=== PATIENT | female | born 1925 | race Caucasian/White ===

== ENCOUNTER 2017-04-16 16:43 | Inpatient (IN) | payer MEDICARE ==
[~2017-04-16] VITALS: Ht 162.6 cm; Wt 53.5 kg
[2017-04-16 17:20] VITALS: BP 168/82
--- NOTE | 2017-04-16 17:30 | NUR ---
Admitted to Acute rehab from [facility] via rney accompanied by med response. BP 168/82. VT-90. Informed Dr. Coello. No new orders at this time. Oriented to unit and call light. Routine admission care done.
[2017-04-16] MEDS ORDERED: ACET-2154 PO (17:33)
[2017-04-16] MEDS ORDERED: ASCO500T10 PO (17:34)
[2017-04-16] MEDS ORDERED: CALC500T3 PO (17:38)
[2017-04-16] MEDS ORDERED: CHOL10005 PO (17:39)
[2017-04-16] MEDS ORDERED: CYAN10009 PO (17:41)
[2017-04-16] MEDS ORDERED: ENOX40DI SUBCUT (17:42)
[2017-04-16] MEDS ORDERED: FAMO20TA8 PO (17:45)
[2017-04-16] MEDS ORDERED: MAG360OR61 PO (17:49)
[2017-04-16] MEDS ORDERED: MAGN400O6 PO (17:51)
[2017-04-16] MEDS ORDERED: METO25TA6 PO (17:54)
[2017-04-16] MEDS ORDERED: VITA200C70 PO (18:22)
[2017-04-16] MEDS ORDERED: ZINC113P2 TP (18:25)
[2017-04-16] MEDS ORDERED: MAG HYDROX/AL HYDROX/SIMETH 30 ML LIQUID UDC PO PRN (18:45)
[2017-04-16] MEDS ORDERED: ACETAMINOPHEN 325 MG TABLET PO PRN (18:45)
[2017-04-16] MEDS ORDERED: Z GUARD REMEDY PASTE 57 GM TUBE TOP PRN (19:00)
[2017-04-16] MEDS ORDERED: BISACODYL 5 MG TABLET.DR PO ONE (20:00)
[2017-04-16] MEDS ORDERED: MAGNESIUM HYDROXIDE 30 ML LIQUID UDC PO PRN (21:00)
[2017-04-16] MEDS: ONDANSETRON HCL 4 MG TABLET PO PRN (21:42)
[2017-04-16] MEDS: METOPROLOL TARTRATE 25 MG TABLET PO SCH (21:42)
[2017-04-16 21:47] VITALS: BP 155/77
[2017-04-16] MEDS ORDERED: ONDANSETRON HCL 4 MG TABLET ONE (21:56)
--- NOTE | 2017-04-16 22:27 | NUR ---
Patient seen during rounding, on bed with basin on her lap and complained that she's feeling nauseous and stated that she wanted to throw up. Zofran med. was given. Vitals are stable no signs respiratory distress. Metoprolol and Bisacodyl tabs were also given. Assisted patient in getting up from her bed through walker to the commode. Per WASTE TRANSPORTATION TECHNICIAN, pt. stated that [email or web address] and believed in superstitions. Will continue to monitor.
[2017-04-17] MEDS: ONDANSETRON HCL 4 MG TABLET PO PRN ×2 (06:32→12:46)
[2017-04-17] MEDS ORDERED: ONDANSETRON HCL 4 MG TABLET ONE (06:38)
--- NOTE | 2017-04-17 06:47 | NUR ---
Patient slept well during the night. Vitals are stable, no signs of distress. She had a BM twice in our shift, expressed feeling of relief since she didn't have any BM for the past 3 days. Assisted patient in going to her commode using a walker device. Complained feeling nauseous again, Zofran was given. All due meds. given. Will endorse patient to AM shift nurse.
[2017-04-17 08:00] LABS: BASOPHILS % (AUTO) 0.2 % (0.0-2.0); EOSINOPHILS % (AUTO) 0.2 % (0.0-7.0); HEMATOCRIT 25.8 % (31.2-41.9); LYMPHOCYTES # (AUTO) 1.8 K/uL (20.0-40.0); LYMPHOCYTES % (AUTO) 15.7 % (20.5-51.5); MEAN CORPUSCULAR HEMOGLOBIN 31.4 uug (24.7-32.8); MEAN CORPUSCULAR HGB CONC 35 g/dL (32.3-35.6); MEAN CORPUSCULAR VOLUME 90.4 fL (75.5-95.3); MONOCYTES # (AUTO) 1.3 K/uL (2.0-10.0); MONOCYTES % (AUTO) 11.1 % (0.0-11.0); NEUTROPHILS # (AUTO) 8.4 K/uL (1.8-8.9); NEUTROPHILS % (AUTO) 72.8 % (38.5-71.5); PLATELET COUNT (AUTO) 183 K/uL (179-408); RED BLOOD CELL COUNT(AUTO) 2.86 MIL/uL (3.63-4.92); WHITE BLOOD COUNT (AUTO) 11.6 K/uL (3.8-11.8)
[2017-04-17 08:11] LABS: CARBON DIOXIDE 28 mmol/L (21-32); CHOLESTEROL 150 mg/dL (<200); CREATININE 0.5 mg/dL (0.6-1.3); GLUCOSE 102 mg/dL (74-106); HDL CHOLESTEROL 71 mg/dL (40-60); MAGNESIUM 1.5 mg/dL (1.8-2.4); PHOSPHOROUS 2.6 mg/dL (2.5-4.9); TRIGLYCERIDES 66 MG/DL (30-150); UREA NITROGEN, BLOOD 7 mg/dL (7-18)
[2017-04-17 08:14] LABS: CHLORIDE 87 mmol/L (98-107)
[2017-04-17] MEDS: VITAMIN E 400 UNITS CAPSULE PO SCH (08:35)
[2017-04-17] MEDS: CALCIUM CARBONATE 500 MG TABLET PO SCH (08:35)
[2017-04-17] MEDS: CYANOCOBALAMIN 1,000 MCG TABLET PO SCH (08:35)
[2017-04-17] MEDS: METOPROLOL TARTRATE 25 MG TABLET PO SCH ×2 (08:35→20:36)
[2017-04-17] MEDS: ASCORBIC ACID 500 MG TABLET PO SCH (08:35)
[2017-04-17] MEDS: CHOLECALCIFEROL 1,000 UNIT TABLET PO SCH (08:36)
[2017-04-17] MEDS: FAMOTIDINE 20 MG TABLET PO SCH (08:36)
[2017-04-17] MEDS: ENOXAPARIN SODIUM 40 MG/0.4 ML DISP.SYRIN SQ SCH (08:42)
[2017-04-17 08:49] VITALS: BP 171/94
[2017-04-17] MEDS ORDERED: Medication Not On Formulary EA (Cholecalciferol (Vitamin D3) (Vitamin D CAPSULE) 1 CAP) PO SCH (09:00)
[2017-04-17] MEDS ORDERED: VITAMIN E PO SCH (09:00)
[2017-04-17] MEDS ORDERED: ENOXAPARIN SODIUM 40 MG/0.4 ML DISP.SYRIN SQ SCH (09:00)
[2017-04-17] MEDS ORDERED: [UNRECOGNIZED DRUG - OTHER] PO SCH (09:00)
[2017-04-17] MEDS ORDERED: MAGNESIUM OXIDE 400 MG TABLET PO ONE (11:30)
--- NOTE | 2017-04-17 13:28 | NUR ---
MEDICATION NOTE C/O NAUSEA UNABLE TO TAKE MAGNESIUM AT THIS TIME WILL HOLD TILL LATER. ZOFRAN GIVEN
[2017-04-17] MEDS ORDERED: IV NS 1000 ML 1,000 ML IV PRN (15:15)
[2017-04-17 19:30] VITALS: BP 159/85
--- NOTE | 2017-04-17 19:30 | NUR ---
RECEIVED PATIENT FROM DAY SHIFT NURSE. SHIFT REPORT AT BEDSIDE. PATIENT LYING COMFORTABLY IN BED, SEMI-FOWLERS, LOW BED POSITION AT START OF SHIFT. PT A/O WITH NO SIGNS OF PAIN, SOB, OR ACUTE DISTRESS. ABLE TO MAKE NEEDS KNOWN. PERTINENT ASSESSMENTS DONE. SAFETY MEASURES IMPLEMENTED. CALL LIGHT PLACED WITHIN REACH OF PATIENT. WILL CONTINUE TO MONITOR PATIENT THROUGH OUT SHIFT.
[2017-04-17 21:00] VITALS: BP 145/71
--- NOTE | 2017-04-17 21:00 | NUR ---
PT NOTED WITH ELEVATED BP AT START OF SHIFT. ADMINISTERED METOPROLOL ORDERED AND CHECKED BP AT 2100. BP AT 145/71, HR OF 77, AND 0XYGEN AT 98%. PT IN NO SIGN OF PAIN, SOB, OR ACUTE DISTRESS. SLEEPING COMFORTABLY IN BED. WILL CONTINUE TO MONITOR PT THROUGH OUT SHIFT.
--- NOTE | 2017-04-18 06:50 | NUR ---
PT SLEPT WELL THROUGH OUT SHIFT WITH NO SIGNS OF PAIN, SOB, OR ACUTE DISTRESS. ALL NEEDS ATTENDED TO. MEDICATIONS ADMINISTERED ORDERED. SAFETY MEASURES IMPLEMENTED. CALL LIGHT PLACED WITHIN REACH OF PT. SHIFT REPORT TO BE GIVEN TO ONCOMING NURSE.
[2017-04-18 07:05] LABS: BASOPHILS # (AUTO) 0.1 K/uL (0.0-8.0); BASOPHILS % (AUTO) 0.7 % (0.0-2.0); EOSINOPHILS # (AUTO) 0.1 K/uL (0.0-0.7); EOSINOPHILS % (AUTO) 0.6 % (0.0-7.0); HEMATOCRIT 27.5 % (37-47); HEMOGLOBIN 9.4 G/DL (12.0-16.0); LYMPHOCYTES # (AUTO) 3.1 K/UL (0.8-4.8); LYMPHOCYTES % (AUTO) 25.5 % (20.5-51.5); MEAN CORPUSCULAR HEMOGLOBIN 31.1 UUG (27.0-31.0); MEAN CORPUSCULAR HGB CONC 34 g/dL (32.0-37.0); MEAN CORPUSCULAR VOLUME 91.2 FL (81.0-99.0); MONOCYTES # (AUTO) 1.5 K/UL (0.1-1.30); NEUTROPHILS # (AUTO) 7.4 K/UL (1.8-8.9); NEUTROPHILS % (AUTO) 61.2 % (38.5-71.5); PLATELET COUNT (AUTO) 270 K/UL (150-450); RED BLOOD CELL COUNT(AUTO) 3.02 MIL/UL (4.2-5.4); WHITE BLOOD COUNT (AUTO) 12.2 K/UL (4.0-11.2)
[2017-04-18 07:16] LABS: CARBON DIOXIDE 25 mmol/L (21-32); CHLORIDE 85 mmol/L (98-107); CREATININE 0.5 mg/dL (0.6-1.3); GLUCOSE 89 mg/dL (74-106); MAGNESIUM 1.6 mg/dL (1.8-2.4); PHOSPHOROUS 2.4 mg/dL (2.5-4.9); POTASSIUM 3.8 mmol/L (3.5-5.1); UREA NITROGEN, BLOOD 8 mg/dL (7-18)
--- NOTE | 2017-04-18 07:40 | NUR ---
Sodium at 119, paged Dr. Penaloza. No call back at this time
--- NOTE | 2017-04-18 08:33 | NUR ---
Still no call back from Dr. Penaloza. Paged again for 2nd time.
[2017-04-18] MEDS: ENOXAPARIN SODIUM 40 MG/0.4 ML DISP.SYRIN SQ SCH (08:52)
[2017-04-18 08:53] VITALS: BP 146/85
[2017-04-18] MEDS: ASCORBIC ACID 500 MG TABLET PO SCH (08:53)
[2017-04-18] MEDS: CHOLECALCIFEROL 1,000 UNIT TABLET PO SCH (08:53)
[2017-04-18] MEDS: METOPROLOL TARTRATE 25 MG TABLET PO SCH ×2 (08:53→20:38)
[2017-04-18] MEDS: FAMOTIDINE 20 MG TABLET PO SCH (08:53)
[2017-04-18] MEDS: CALCIUM CARBONATE 500 MG TABLET PO SCH (08:53)
[2017-04-18] MEDS: CYANOCOBALAMIN 1,000 MCG TABLET PO SCH (08:53)
[2017-04-18] MEDS: VITAMIN E 400 UNITS CAPSULE PO SCH (08:54)
--- NOTE | 2017-04-18 09:30 | NUR ---
IVF started over right hand G22, patent and intact. Dr. Penaloza ordered BMP after 2 hours of NS and oral fluid restrictions limited to 1.2L in 24H.
[2017-04-18] MEDS: LYTES/YERBA SANTA 240 ML BOTTLE MM PRN (11:00)
[2017-04-18] MEDS ORDERED: MAGNESIUM OXIDE 400 MG TABLET PO ONE (12:00)
[2017-04-18 12:26] LABS: CARBON DIOXIDE 28 mmol/L (21-32); CHLORIDE 86 mmol/L (98-107); CREATININE 0.5 mg/dL (0.6-1.3); GLUCOSE 103 mg/dL (74-106); POTASSIUM 4.6 mmol/L (3.5-5.1); UREA NITROGEN, BLOOD 11 mg/dL (7-18)
--- NOTE | 2017-04-18 13:50 | NUR ---
SODIUM LEVELS STILL AT 119. DR. TALAMANTES INFORMED. LASIX 20 MG POX1 AND K-DUR 2- MEQ PO X1 ORDERED.
--- NOTE | 2017-04-18 13:57 | NUR ---
INTERDISCIPLINARY REHAB SUMMARY
[2017-04-18] MEDS ORDERED: POTASSIUM CHLORIDE 20 MEQ TAB.PRT.SR PO ONE (15:15)
[2017-04-18] MEDS ORDERED: FUROSEMIDE 20 MG TABLET PO ONE (15:15)
[2017-04-18] MEDS ORDERED: NEUTRA PHOS PACKET PO ONE (15:30)
--- NOTE | 2017-04-18 19:30 | NUR ---
RECEIVED PT FROM DAY SHIFT NURSE. SHIFT REPORT AT BEDSIDE. PT SITTING COMFORTABLY IN WHEELCHAIR AT BEDSIDE. PT A/O WITH NO SIGNS OF PAIN, SOB, OR ACUTE DISTRESS. ABLE TO MAKE NEEDS KNOWN. SAFETY MEASURES IMPLEMENTED. PERTINENT ASSESSMENT DONE. CALL LIGHT PLACED WITHIN REACH OF PT. WILL CONTINUE TO MONITOR PT THROUGH OUT SHIFT.
[2017-04-18 20:00] VITALS: BP 175/77
--- NOTE | 2017-04-19 06:56 | NUR ---
PT SLEPT INTERMITTENTLY THROUGH SHIFT WITH NO SIGNS OF PAIN, ACUTE DISTRESS, OR SOB. ALL NEEDS ATTENDED TO. ABLE TO MAKE NEEDS KNOWN. SAFETY MEASURES IMPLEMENTED. ALL MEDICATIONS ADMINISTERED ORDERED. CALL LIGHT WITHIN REACH OF PT. WILL ENDORSE TO MORNING SHIFT RN.
--- NOTE | 2017-04-19 07:25 | NUR ---
Received patient in bed, awake, alert, verbally responsive, afebrile, not in any form of acute distress. She denies any pain or discomfort at this time. Call light placed within reach. Reminded to use call light for assistance with verbalized understanding.
[2017-04-19 07:39] LABS: BASOPHILS % (AUTO) 0.3 % (0.0-2.0); EOSINOPHILS % (AUTO) 0.4 % (0.0-7.0); HEMATOCRIT 26.8 % (31.2-41.9); HEMOGLOBIN 9.4 g/dL (10.9-14.3); LYMPHOCYTES # (AUTO) 2.6 K/uL (20.0-40.0); LYMPHOCYTES % (AUTO) 19.7 % (20.5-51.5); MEAN CORPUSCULAR HEMOGLOBIN 31.6 uug (24.7-32.8); MEAN CORPUSCULAR HGB CONC 35 g/dL (32.3-35.6); MEAN CORPUSCULAR VOLUME 90.6 fL (75.5-95.3); MONOCYTES # (AUTO) 1.6 K/uL (2.0-10.0); MONOCYTES % (AUTO) 12.1 % (0.0-11.0); NEUTROPHILS # (AUTO) 8.8 K/uL (1.8-8.9); NEUTROPHILS % (AUTO) 67.5 % (38.5-71.5); PLATELET COUNT (AUTO) 271 K/uL (179-408); RED BLOOD CELL COUNT(AUTO) 2.96 MIL/uL (3.63-4.92)
[2017-04-19 07:50] LABS: CARBON DIOXIDE 28 mmol/L (21-32); CHLORIDE 89 mmol/L (98-107); CREATININE 0.5 mg/dL (0.6-1.3); GLUCOSE 85 mg/dL (74-106); MAGNESIUM 1.5 mg/dL (1.8-2.4); PHOSPHOROUS 2.8 mg/dL (2.5-4.9); POTASSIUM 4.1 mmol/L (3.5-5.1); UREA NITROGEN, BLOOD 6 mg/dL (7-18)
[2017-04-19] MEDS: ASCORBIC ACID 500 MG TABLET PO SCH (08:26)
[2017-04-19] MEDS: CHOLECALCIFEROL 1,000 UNIT TABLET PO SCH (08:26)
[2017-04-19] MEDS: FAMOTIDINE 20 MG TABLET PO SCH (08:26)
[2017-04-19] MEDS: CALCIUM CARBONATE 500 MG TABLET PO SCH (08:26)
[2017-04-19] MEDS: CYANOCOBALAMIN 1,000 MCG TABLET PO SCH (08:26)
[2017-04-19] MEDS: VITAMIN E 400 UNITS CAPSULE PO SCH (08:27)
[2017-04-19] MEDS: METOPROLOL TARTRATE 25 MG TABLET PO SCH ×2 (08:28→20:31)
[2017-04-19] MEDS: ENOXAPARIN SODIUM 40 MG/0.4 ML DISP.SYRIN SQ SCH (08:29)
[2017-04-19 08:48] VITALS: BP 151/76
[2017-04-19] MEDS ORDERED: MAGNESIUM OXIDE 400 MG TABLET PO ONE (12:45)
[2017-04-19 20:00] VITALS: BP 135/74
--- NOTE | 2017-04-19 20:00 | NUR ---
Received pt on bed alert, awake and oriented. Able to make needs known. No acute distress noted. Denies pain. No SOB noted. MD made aware regarding lab result, no new order. Assisted to the bathroom x2. Due meds given as ordered and well tolerated. Vital signs stable. Call light within reach. All needs attended.
--- NOTE | 2017-04-20 07:15 | NUR ---
Received report from ring making machine operator nurse. Patient in bed, awake, verbally responsive. No complain of pain or any discomfort. Assisted to her needs. Call light placed within reach.
[2017-04-20] MEDS: VITAMIN E 400 UNITS CAPSULE PO SCH (09:00)
[2017-04-20] MEDS: CYANOCOBALAMIN 1,000 MCG TABLET PO SCH (09:00)
[2017-04-20] MEDS: FAMOTIDINE 20 MG TABLET PO SCH (09:56)
[2017-04-20] MEDS: CHOLECALCIFEROL 1,000 UNIT TABLET PO SCH (09:56)
[2017-04-20] MEDS: CALCIUM CARBONATE 500 MG TABLET PO SCH (09:56)
[2017-04-20] MEDS: ASCORBIC ACID 500 MG TABLET PO SCH (09:56)
[2017-04-20] MEDS: METOPROLOL TARTRATE 25 MG TABLET PO SCH ×2 (09:57→21:34)
[2017-04-20] MEDS: ENOXAPARIN SODIUM 40 MG/0.4 ML DISP.SYRIN SQ SCH (10:02)
[2017-04-20 11:45] LABS: BASOPHILS # (AUTO) 0.2 K/uL (0.0-8.0); BASOPHILS % (AUTO) 1.1 % (0.0-2.0); EOSINOPHILS # (AUTO) 0.1 K/uL (0.0-0.7); EOSINOPHILS % (AUTO) 0.5 % (0.0-7.0); HEMATOCRIT 24.5 % (37-47); HEMOGLOBIN 8.3 G/DL (12.0-16.0); LYMPHOCYTES # (AUTO) 1.6 K/UL (0.8-4.8); LYMPHOCYTES % (AUTO) 10.6 % (20.5-51.5); MEAN CORPUSCULAR HEMOGLOBIN 31.4 UUG (27.0-31.0); MEAN CORPUSCULAR HGB CONC 34 g/dL (32.0-37.0); MEAN CORPUSCULAR VOLUME 92.8 FL (81.0-99.0); MONOCYTES # (AUTO) 0.5 K/UL (0.1-1.30); NEUTROPHILS % (AUTO) 84.8 % (38.5-71.5); PLATELET COUNT (AUTO) 217 K/UL (150-450); RED BLOOD CELL COUNT(AUTO) 2.64 MIL/UL (4.2-5.4); WHITE BLOOD COUNT (AUTO) 15.4 K/UL (4.0-11.2)
--- NOTE | 2017-04-20 12:50 | NUR ---
Notified Dr. Portillo Penaloza regarding results of labs done today damir WBC result of 15.4 but per MD no new order.
[2017-04-20 13:14] LABS: CARBON DIOXIDE 25 mmol/L (21-32); CHLORIDE 91 mmol/L (98-107); CREATININE 0.5 mg/dL (0.6-1.3); GLUCOSE 73 mg/dL (74-106); MAGNESIUM 1.6 mg/dL (1.8-2.4); POTASSIUM 4.1 mmol/L (3.5-5.1); UREA NITROGEN, BLOOD 6 mg/dL (7-18)
[2017-04-20 14:10] LABS: LYMPHOCYTES % (MANUAL) 9 % (20-40); MONOCYTES % (MANUAL) 16 % (2-10); NEUTROPHILS % (MANUAL) 75 % (42-75)
--- NOTE | 2017-04-20 20:00 | NUR ---
received pt on bed alert and awake. Calm and cooperative to care. No acute distress noted. Denies pain. BP was 154/81, BP meds given as ordered. assisted to the bathroom x1, tolerated well. Call light within reach. All needs attended.
--- NOTE | 2017-04-21 05:25 | NUR ---
patient slept well throughout the shift. No s/s of distress. no complaints of pain. Call light within reach. All needs met.
[2017-04-21 08:00] VITALS: BP 138/76
[2017-04-21] MEDS: CHOLECALCIFEROL 1,000 UNIT TABLET PO SCH (08:19)
[2017-04-21] MEDS: CYANOCOBALAMIN 1,000 MCG TABLET PO SCH (08:20)
[2017-04-21] MEDS: ASCORBIC ACID 500 MG TABLET PO SCH (08:20)
[2017-04-21] MEDS: FAMOTIDINE 20 MG TABLET PO SCH (08:20)
[2017-04-21] MEDS: CALCIUM CARBONATE 500 MG TABLET PO SCH (08:20)
[2017-04-21] MEDS: VITAMIN E 400 UNITS CAPSULE PO SCH (08:20)
[2017-04-21] MEDS: ENOXAPARIN SODIUM 40 MG/0.4 ML DISP.SYRIN SQ SCH (08:39)
[2017-04-21] MEDS: METOPROLOL TARTRATE 25 MG TABLET PO SCH ×2 (09:00→20:25)
[2017-04-21 09:04] LABS: *BILIRUBIN,URIN NEGATIVE (NEGATIVE); *BLOOD, URINE 2+ (NEGATIVE); *CLARITY,URINE TURBID (CLEAR); *COLOR,URINE YELLOW (YELLOW); *KETONES,URINE NEGATIVE (NEGATIVE); *PROTEIN,URINE NEGATIVE (NEGATIVE); LEUKOCYTE ESTERASE ,URINE 3+ (NEGATIVE); NITRITE, URINE POSITIVE (NEGATIVE); PH,URINE 8.5 (5.0-8.0); UGLUCOSE NEGATIVE (NEGATIVE)
[2017-04-21 09:40] LABS: BACTERIA,URINE MANY /HPF (NONE SEEN); SQUAMOUS EPITHELIAL CELL,UR FEW /HPF (NONE SEEN); WBC,URINE TNTC /HPF (0-3)
--- NOTE | 2017-04-21 10:52 | NUR ---
pt seen on rounding. bp elevated. hr and rr wnl. pt tolerates room air. pt took meds as prescribed. continues to complain about having a hard time swallowing. pt given yogurt with meds. pt tolerated swallowing. pt continues to garble with speech. pt continues to say that she feels like this morning is bad. pt helped with neesd. pt is on fluid restriction. will continue to monitor.
[2017-04-21] MEDS: LYTES/YERBA SANTA 240 ML BOTTLE MM PRN (14:13)
[2017-04-21] MEDS: NITROFURANTOIN/NITROFURAN MAC 100 MG CAPSULE PO SCH ×2 (14:48→20:25)
--- NOTE | 2017-04-21 19:19 | NUR ---
pt stable throughout day. pt assisted as needed. call light within reach. pt had lab results and was diagnosed with uti. pt given nitro for uti. no other new developments from previous shift. will endorse to night court magistrate nurse.
--- NOTE | 2017-04-21 19:30 | NUR ---
PT ALERT AND ORIENTED IN BED. NO DISTRESS NOTED. MAINTAINED 1.2L FLUID RESTRICTIONS. EDUCATION GIVEN REGARDING FLUID RESTRICTION. DRESSING CLEAN AND INTACT ON LEFT HIP. SAFETY MAINTAINED. FRIEND AT BEDSIDE. WILL CONTINUE TO MONITOR.
[2017-04-21 20:00] VITALS: BP 166/80
[2017-04-21 22:00] VITALS: BP 140/76
--- NOTE | 2017-04-22 06:38 | NUR ---
PT RESTING IN BED. NO DISTRESS NOTED. DRESSING CHANGED PER SOILING. CLEAN AND DRY. NO SIGNIFICANT CHANGES THROUGHOUT THE NIGHT. SLEPT WELL. COMPLIANT WITH NURSING CARE. SAFETY MAINTAINED. CALL LIGHT WITHIN REACH.
[2017-04-22 08:00] VITALS: BP 147/81
[2017-04-22] MEDS: ASCORBIC ACID 500 MG TABLET PO SCH (08:17)
[2017-04-22] MEDS: NITROFURANTOIN/NITROFURAN MAC 100 MG CAPSULE PO SCH ×2 (08:17→20:39)
[2017-04-22] MEDS: CHOLECALCIFEROL 1,000 UNIT TABLET PO SCH (08:17)
[2017-04-22] MEDS: CALCIUM CARBONATE 500 MG TABLET PO SCH (08:17)
[2017-04-22] MEDS: CYANOCOBALAMIN 1,000 MCG TABLET PO SCH (08:17)
[2017-04-22] MEDS: METOPROLOL TARTRATE 25 MG TABLET PO SCH ×2 (08:17→20:40)
[2017-04-22] MEDS: FAMOTIDINE 20 MG TABLET PO SCH (08:17)
[2017-04-22] MEDS: VITAMIN E 400 UNITS CAPSULE PO SCH (08:18)
[2017-04-22] MEDS: ENOXAPARIN SODIUM 40 MG/0.4 ML DISP.SYRIN SQ SCH (08:22)
--- NOTE | 2017-04-22 09:58 | NUR ---
pt seen on rounding .pt vitals stable. no signs of acute distress. pt given po meds and showed signs of swallowing difficulty. will refer to speech therapist. pt complaints of no pain. pt assisted to the bathroom voided and had a bm. site intact no signs of infection. pt ate breakfast and had her own preferences. withheld iv ns due to fluid restrictions. pt seen by brim plater. will await new orders.
--- NOTE | 2017-04-22 18:08 | NUR ---
PT STABLE THROUGHTOUT THE DAY. no sob. fluid restrictions followed. pt complains. explained risks and benefits. pt understood. wound site clean and intact. cleaned and applied new dressing. pt took medications as prescirbed. no pain medications given. pt assisted to the restroom .pt participated in therapy. will endorse to revenue research analyst nurse.
--- NOTE | 2017-04-22 19:30 | NUR ---
Seen patient during rounds, seated on her wheelchair, smiling and verbally responsive. Vital signs stable, afebrile, breathing even and non-labored. Denies pain. HS meds given, tolerated well. Assisted patient in going to the bathroom, able to walk using her walker with minimal assistance. Able to make needs known. Helped patient changed to her hospital gown and tucked in bed. Call light within patient's reach.
[2017-04-22 20:33] VITALS: BP 131/66
--- NOTE | 2017-04-23 07:08 | NUR ---
Patient able to sleep the whole night. Assisted patient in going to the bathroom, ambulatory with walker and with minimal assistance. No signs of distress, denies pain. All due meds given. All needs met. Will endorse to morning shift nurse.
[2017-04-23 07:15] VITALS: BP 139/78
--- NOTE | 2017-04-23 07:52 | NUR ---
PATIENT NOTED RESTING IN BED WITH EYES CLOSED, SBAR RECEIVED FROM NIGHT NURSE, DENIES PAIN AT THIS TIME, NO SIGNS OF DISTRESS, CALL LIGHT IN REACH, BED LOCKED AND IN LOWEST POSITION
[2017-04-23] MEDS: VITAMIN E 400 UNITS CAPSULE PO SCH (08:29)
[2017-04-23] MEDS: FAMOTIDINE 20 MG TABLET PO SCH (08:29)
[2017-04-23] MEDS: CYANOCOBALAMIN 1,000 MCG TABLET PO SCH (08:29)
[2017-04-23] MEDS: METOPROLOL TARTRATE 25 MG TABLET PO SCH ×2 (08:30→20:21)
[2017-04-23] MEDS: NITROFURANTOIN/NITROFURAN MAC 100 MG CAPSULE PO SCH ×2 (08:30→20:19)
[2017-04-23] MEDS: ASCORBIC ACID 500 MG TABLET PO SCH (08:30)
[2017-04-23] MEDS: CHOLECALCIFEROL 1,000 UNIT TABLET PO SCH (08:30)
[2017-04-23] MEDS: CALCIUM CARBONATE 500 MG TABLET PO SCH (08:30)
[2017-04-23] MEDS: ENOXAPARIN SODIUM 40 MG/0.4 ML DISP.SYRIN SQ SCH (08:31)
[2017-04-23 11:14] LABS: CARBON DIOXIDE 28 mmol/L (21-32); CHLORIDE 92 mmol/L (98-107); CREATININE 0.6 mg/dL (0.6-1.3); GLUCOSE 87 mg/dL (74-106); MAGNESIUM 1.8 mg/dL (1.8-2.4); PHOSPHOROUS 3.3 mg/dL (2.5-4.9); POTASSIUM 4.8 mmol/L (3.5-5.1); UREA NITROGEN, BLOOD 13 mg/dL (7-18)
[2017-04-23 11:21] LABS: BASOPHILS # (AUTO) 0.3 K/uL (0.0-8.0); BASOPHILS % (AUTO) 2.9 % (0.0-2.0); EOSINOPHILS # (AUTO) 0.1 K/uL (0.0-0.7); EOSINOPHILS % (AUTO) 0.6 % (0.0-7.0); HEMATOCRIT 29.4 % (37-47); LYMPHOCYTES # (AUTO) 1.9 K/UL (0.8-4.8); LYMPHOCYTES % (AUTO) 17.3 % (20.5-51.5); MEAN CORPUSCULAR HEMOGLOBIN 31.8 UUG (27.0-31.0); MEAN CORPUSCULAR HGB CONC 34 g/dL (32.0-37.0); MEAN CORPUSCULAR VOLUME 94.1 FL (81.0-99.0); MONOCYTES # (AUTO) 1.1 K/UL (0.1-1.30); MONOCYTES % (AUTO) 9.6 % (0.0-11.0); NEUTROPHILS # (AUTO) 7.6 K/UL (1.8-8.9); NEUTROPHILS % (AUTO) 69.6 % (38.5-71.5)
[2017-04-23 12:10] LABS: PLATELET COUNT (AUTO) 504 K/UL (150-450)
[2017-04-23 15:18] LABS: NEUTROPHILS % (MANUAL) 69 % (42-75)
[2017-04-23 15:19] LABS: BAND % (MANUAL) 2 % (0-10); LYMPHOCYTES % (MANUAL) 21 % (20-40); MONOCYTES % (MANUAL) 8 % (2-10)
--- NOTE | 2017-04-23 19:20 | NUR ---
Received patient sitting on a chair, watching TV. AAO x4. No acute distress noted. No c/o pain. Wound site on left hip clean, dry, and intact. IV site on right hand #22 gauge, intact and patent. Patient on fluid restrictions 1.2 L/ day. Safety measures maintained. Call light within reach. Will continue to monitor.
[2017-04-23 20:00] VITALS: BP 140/60
--- NOTE | 2017-04-24 00:30 | NUR ---
Clean wound site. Changed dressing. Clean, dry, and intact. No signs of infection noted.
--- NOTE | 2017-04-24 05:42 | NUR ---
Patient slept comfortably t/o the night. No acute distress noted. No c/o pain or discomfort. All needs attended. Safety measures maintained. Call light within reach. Will endorse to day shift RN. Continue to monitor.
[2017-04-24 07:15] LABS: THYROID STIMULATING HORMONE 7.894 mIU/mL (0.358-3.740)
[2017-04-24 07:18] VITALS: BP 148/78
[2017-04-24 08:19] LABS: CARBON DIOXIDE 25 mmol/L (21-32); CHLORIDE 92 mmol/L (98-107); CREATININE 0.5 mg/dL (0.6-1.3); GLUCOSE 85 mg/dL (74-106); MAGNESIUM 1.8 mg/dL (1.8-2.4); PHOSPHOROUS 3.6 mg/dL (2.5-4.9); POTASSIUM 4.4 mmol/L (3.5-5.1); UREA NITROGEN, BLOOD 13 mg/dL (7-18); URIC ACID 1.9 mg/dL (2.6-6.0)
[2017-04-24] MEDS: CHOLECALCIFEROL 1,000 UNIT TABLET PO SCH (08:59)
[2017-04-24] MEDS: FAMOTIDINE 20 MG TABLET PO SCH (08:59)
[2017-04-24] MEDS: NITROFURANTOIN/NITROFURAN MAC 100 MG CAPSULE PO SCH ×2 (08:59→20:52)
[2017-04-24] MEDS: VITAMIN E 400 UNITS CAPSULE PO SCH (08:59)
[2017-04-24] MEDS: CYANOCOBALAMIN 1,000 MCG TABLET PO SCH (08:59)
[2017-04-24] MEDS: CALCIUM CARBONATE 500 MG TABLET PO SCH (08:59)
[2017-04-24] MEDS: ASCORBIC ACID 500 MG TABLET PO SCH (08:59)
[2017-04-24] MEDS: METOPROLOL TARTRATE 25 MG TABLET PO SCH ×2 (09:05→20:51)
[2017-04-24] MEDS: ENOXAPARIN SODIUM 40 MG/0.4 ML DISP.SYRIN SQ SCH (09:10)
[2017-04-25] MEDS: LEVOTHYROXINE SODIUM 25 MCG TABLET PO SCH (06:16)
--- NOTE | 2017-04-25 07:01 | NUR ---
Patient rested well the whole night. No complains of any discomfort or pain. All due meds given. All needs attended to. Provided safety measures. Call light in reach. Will endorse to morning shift nurse.
[2017-04-25 07:29] LABS: BASOPHILS # (AUTO) 0.1 K/uL (0.0-8.0); BASOPHILS % (AUTO) 0.9 % (0.0-2.0); EOSINOPHILS # (AUTO) 0.2 K/uL (0.0-0.7); EOSINOPHILS % (AUTO) 1.3 % (0.0-7.0); HEMATOCRIT 26.7 % (37-47); HEMOGLOBIN 9.3 G/DL (12.0-16.0); LYMPHOCYTES # (AUTO) 2.7 K/UL (0.8-4.8); LYMPHOCYTES % (AUTO) 23.5 % (20.5-51.5); MEAN CORPUSCULAR HEMOGLOBIN 32.5 UUG (27.0-31.0); MEAN CORPUSCULAR HGB CONC 35 g/dL (32.0-37.0); MEAN CORPUSCULAR VOLUME 93.1 FL (81.0-99.0); MONOCYTES # (AUTO) 1.3 K/UL (0.1-1.30); NEUTROPHILS # (AUTO) 7.3 K/UL (1.8-8.9); NEUTROPHILS % (AUTO) 63.3 % (38.5-71.5); PLATELET COUNT (AUTO) 485 K/UL (150-450); RED BLOOD CELL COUNT(AUTO) 2.87 MIL/UL (4.2-5.4); WHITE BLOOD COUNT (AUTO) 11.6 K/UL (4.0-11.2)
[2017-04-25 07:58] LABS: CARBON DIOXIDE 27 mmol/L (21-32); CHLORIDE 93 mmol/L (98-107); CHOLESTEROL 193 mg/dL (<200); CREATININE 0.5 mg/dL (0.6-1.3); GLUCOSE 85 mg/dL (74-106); HDL CHOLESTEROL 80 mg/dL (40-60); MAGNESIUM 1.9 mg/dL (1.8-2.4); PHOSPHOROUS 3.4 mg/dL (2.5-4.9); POTASSIUM 4.2 mmol/L (3.5-5.1); TRIGLYCERIDES 56 MG/DL (30-150); UREA NITROGEN, BLOOD 12 mg/dL (7-18)
[2017-04-25] MEDS: ASCORBIC ACID 500 MG TABLET PO SCH (08:38)
[2017-04-25] MEDS: CHOLECALCIFEROL 1,000 UNIT TABLET PO SCH (08:39)
[2017-04-25] MEDS: CALCIUM CARBONATE 500 MG TABLET PO SCH (08:39)
[2017-04-25] MEDS: NITROFURANTOIN/NITROFURAN MAC 100 MG CAPSULE PO SCH ×2 (08:39→20:34)
[2017-04-25] MEDS: CYANOCOBALAMIN 1,000 MCG TABLET PO SCH (08:39)
[2017-04-25] MEDS: VITAMIN E 400 UNITS CAPSULE PO SCH (08:39)
[2017-04-25] MEDS: FAMOTIDINE 20 MG TABLET PO SCH (08:39)
[2017-04-25] MEDS: METOPROLOL TARTRATE 25 MG TABLET PO SCH ×2 (08:40→20:35)
[2017-04-25] MEDS: ENOXAPARIN SODIUM 40 MG/0.4 ML DISP.SYRIN SQ SCH (08:43)
[2017-04-25 08:45] VITALS: BP 129/70
[2017-04-25] MEDS ORDERED: LYTES/YERBA SANTA 240 ML BOTTLE MM PRN (13:15)
--- NOTE | 2017-04-25 13:50 | NUR ---
INTERDISCIPLINARY TEAM SUMMARY
--- NOTE | 2017-04-25 18:58 | NUR ---
Pt has remained alert, oriented, and with no c/o pain during this shift. V/S remain stable. Wound photos taken and documented. Pt has remained compliant with fluid restrictions and all routine medications. All safety and comfort measures have been met at this time. Will continue to monitor and endorse to pigment presser.
--- NOTE | 2017-04-25 19:20 | NUR ---
Received patient sitting on the chair, resting and watching TV. AAO x4. No acute distress noted. No c/o pain or discomfort at this time. Safety measures maintained. Call light within reach. Will continue to monitor.
[2017-04-25 20:00] VITALS: BP 143/70
--- NOTE | 2017-04-26 05:17 | NUR ---
Patient slept comfortably t/o the night. No c/o pain or discomfort. Vital signs stable. Medications given as prescribed. All needs attended. Safety measures maintained. Call light within reach. Will endorse to day shift nurse. Continue to monitor.
[2017-04-26] MEDS: LEVOTHYROXINE SODIUM 25 MCG TABLET PO SCH (06:14)
[2017-04-26 08:23] VITALS: BP 139/72
--- NOTE | 2017-04-26 08:42 | NUR ---
Pt report received at bedside, board updated. Pt alert, awake, oriented x4. Pt assessed sitting up in bed eating breakfast. Emesis episode occurred, Pt reports from eating banana too quickly. Pt assisted to sit at edge of bed r/t emesis completion. Morning medications administered upon Pt permission of stomach settling. Plan of care discussed and Pt compliant. Assistance to shower anticipated while all comfort and safety measures have been met. Call light and personal belongings placed within reach. Will continue to monitor.
[2017-04-26] MEDS: ENOXAPARIN SODIUM 40 MG/0.4 ML DISP.SYRIN SQ SCH (08:49)
[2017-04-26] MEDS: VITAMIN E 400 UNITS CAPSULE PO SCH (09:37)
[2017-04-26] MEDS: ASCORBIC ACID 500 MG TABLET PO SCH (09:37)
[2017-04-26] MEDS: CYANOCOBALAMIN 1,000 MCG TABLET PO SCH (09:37)
[2017-04-26] MEDS: NITROFURANTOIN/NITROFURAN MAC 100 MG CAPSULE PO SCH ×2 (09:37→20:27)
[2017-04-26] MEDS: CALCIUM CARBONATE 500 MG TABLET PO SCH (09:37)
[2017-04-26] MEDS: CHOLECALCIFEROL 1,000 UNIT TABLET PO SCH (09:37)
[2017-04-26] MEDS: METOPROLOL TARTRATE 25 MG TABLET PO SCH ×2 (09:38→20:27)
[2017-04-26] MEDS: FAMOTIDINE 20 MG TABLET PO SCH (09:39)
--- NOTE | 2017-04-26 13:52 | NUR ---
IV accesses compromised during shower AEB bright red blood evident at site. IV access removed r/t no IV medications anticipated at this time. Will continue to monitor and follow up.
--- NOTE | 2017-04-26 17:52 | NUR ---
Pt sitting up right in chair eating dinner. Pt states no c/o pain or discomfort at this time. Pt assisted to bathroom, toileting needs met. All comfort and safety measures in place. Call light and personal items within reach. Will continue to monitor and endorse fluid restriction changes to machinist 2nd shift.
--- NOTE | 2017-04-26 19:30 | NUR ---
RECEIVED PT FROM DAY SHIFT NURSE. SHIFT REPORT AT BEDSIDE. PATIENT SITTING IN CHAIR AT BEDSIDE. PT A/O WITH NO SIGNS OF PAIN, SOB, OR ACUTE DISTRESS. PERTINENT ASSESSMENTS DONE. SAFETY MEASURES IMPLEMENTED. CALL LIGHT PLACED WITHIN REACH. WILL CONTINUE TO MONITOR PT THROUGH OUT SHIFT.
[2017-04-26 20:00] VITALS: BP 142/68
[2017-04-27] MEDS: LEVOTHYROXINE SODIUM 25 MCG TABLET PO SCH (06:07)
--- NOTE | 2017-04-27 06:50 | NUR ---
PT SLEPT WELL THROUGH OUT SHIFT. NO SIGNS OF PAIN, SOB, OR ACUTE DISTRESS. ALL NEEDS ATTENDED TO. MEDICATIONS ADMINISTERED ORDERED. CALL LIGHT WITHIN REACH OF PT. SAFETY MEASURES IMPLEMENTED. WILL ENDORSE TO DAY SHIFT NURSE.
[2017-04-27 07:49] LABS: BASOPHILS # (AUTO) 0.1 K/uL (0.0-8.0); EOSINOPHILS # (AUTO) 0.1 K/uL (0.0-0.7); EOSINOPHILS % (AUTO) 0.4 % (0.0-7.0); HEMATOCRIT 27.5 % (37-47); HEMOGLOBIN 9.6 G/DL (12.0-16.0); LYMPHOCYTES # (AUTO) 1.9 K/UL (0.8-4.8); LYMPHOCYTES % (AUTO) 12.8 % (20.5-51.5); MEAN CORPUSCULAR HEMOGLOBIN 33.2 UUG (27.0-31.0); MEAN CORPUSCULAR HGB CONC 35 g/dL (32.0-37.0); MEAN CORPUSCULAR VOLUME 94.7 FL (81.0-99.0); MONOCYTES # (AUTO) 1.4 K/UL (0.1-1.30); MONOCYTES % (AUTO) 9.6 % (0.0-11.0); NEUTROPHILS # (AUTO) 11.4 K/UL (1.8-8.9); NEUTROPHILS % (AUTO) 76.2 % (38.5-71.5); PLATELET COUNT (AUTO) 465 K/UL (150-450); RED BLOOD CELL COUNT(AUTO) 2.91 MIL/UL (4.2-5.4); WHITE BLOOD COUNT (AUTO) 14.9 K/UL (4.0-11.2)
[2017-04-27 08:04] LABS: ALANINE AMINOTRANSFERASE 21 U/L (14-59); ALKALINE PHOSPHATASE 133 U/L (50-136); ASPARTATE AMINOTRANSFERASE 23 U/L (15-37); BILIRUBIN,TOTAL 1.2 mg/dL (0.2-1.0); CARBON DIOXIDE 29 mmol/L (21-32); CHLORIDE 94 mmol/L (98-107); CREATININE 0.5 mg/dL (0.6-1.3); GLUCOSE 89 mg/dL (74-106); MAGNESIUM 1.8 mg/dL (1.8-2.4); PHOSPHOROUS 4.2 mg/dL (2.5-4.9); POTASSIUM 4.2 mmol/L (3.5-5.1); TOTAL PROTEIN, SERUM 8.2 g/dL (6.4-8.2); UREA NITROGEN, BLOOD 8 mg/dL (7-18)
[2017-04-27 08:17] LABS: BAND % (MANUAL) 1 % (0-10); EOSINOPHILS % (MANUAL) 1 % (0-8); LYMPHOCYTES % (MANUAL) 15 % (20-40); MONOCYTES % (MANUAL) 8 % (2-10); NEUTROPHILS % (MANUAL) 75 % (42-75)
[2017-04-27] MEDS: CALCIUM CARBONATE 500 MG TABLET PO SCH (08:37)
[2017-04-27] MEDS: CYANOCOBALAMIN 1,000 MCG TABLET PO SCH (08:37)
[2017-04-27] MEDS: CHOLECALCIFEROL 1,000 UNIT TABLET PO SCH (08:38)
[2017-04-27] MEDS: NITROFURANTOIN/NITROFURAN MAC 100 MG CAPSULE PO SCH ×2 (08:38→21:29)
[2017-04-27] MEDS: ASCORBIC ACID 500 MG TABLET PO SCH (08:38)
[2017-04-27] MEDS: FERROUS SULFATE 325 MG TABEC PO SCH (08:38)
[2017-04-27] MEDS: METOPROLOL TARTRATE 25 MG TABLET PO SCH ×2 (08:39→21:29)
[2017-04-27] MEDS: FAMOTIDINE 20 MG TABLET PO SCH (08:39)
[2017-04-27] MEDS: VITAMIN E 400 UNITS CAPSULE PO SCH (08:40)
[2017-04-27 08:52] VITALS: BP 143/67
[2017-04-27] MEDS: ENOXAPARIN SODIUM 40 MG/0.4 ML DISP.SYRIN SQ SCH (08:52)
--- NOTE | 2017-04-27 12:39 | NUR ---
SBAR report received at bedside, board updated. Pt assessed to be in no discomfort or SOB with no c/o pain at this time. Pt compliant with all routine morning medication administration. No s/s of bleeding r/t Lovenox. Plan of care and fluid restriction of 900ml/24hr discussed with Pt and understanding verbalized. Call light and personal items within reach. All safety and comfort measures met. Will continue to monitor.
--- NOTE | 2017-04-27 18:32 | NUR ---
Pt denies any pain and requests ice to stop slight itchiness of incision. No s/s of redness of infection along incisional boarders. Pt has remained complaint with fluid restrictions of 900ml/25hrs and verbalizes understanding of how to follow these measurements. notified of Pt decision to appeal d/c, awaiting insurance review of final verdict. Will update plan of care accordingly. Call light and personal belongings placed within reach. All safety and comfort needs met at this time. Will endorse changes to rn shift mgr.
--- NOTE | 2017-04-27 20:00 | NUR ---
Received pt sitting up on the chair comfortably with no signs of distress. Denies pain. No SOB noted. Pt was pleasant and calm. All due meds givena s ordered and well tolerated. Assisted to the bathroom x2. Vital signs stable. Call light within reach. All needs met. Will continue to monitor.
[2017-04-27 20:52] VITALS: BP 104/71
[2017-04-28] MEDS: LEVOTHYROXINE SODIUM 25 MCG TABLET PO SCH (06:13)
--- NOTE | 2017-04-28 06:48 | NUR ---
Pt slept well throughout the shift. No acute distress noted. Denies pain. All due meds given as ordered and well tolerated. Call light within reach. All needs met.
[2017-04-28 08:21] VITALS: BP 157/80
--- NOTE | 2017-04-28 08:45 | NUR ---
Received patient awake, alert x4. Sitting in chair. Not in apparent distress, call light within reach. No complaints of pain /discomfort at this time.
[2017-04-28] MEDS: ENOXAPARIN SODIUM 40 MG/0.4 ML DISP.SYRIN SQ SCH (08:55)
[2017-04-28] MEDS: ASCORBIC ACID 500 MG TABLET PO SCH (08:59)
[2017-04-28] MEDS: NITROFURANTOIN/NITROFURAN MAC 100 MG CAPSULE PO SCH (08:59)
[2017-04-28] MEDS: VITAMIN E 400 UNITS CAPSULE PO SCH (08:59)
[2017-04-28] MEDS: CALCIUM CARBONATE 500 MG TABLET PO SCH (08:59)
[2017-04-28] MEDS: CYANOCOBALAMIN 1,000 MCG TABLET PO SCH (08:59)
[2017-04-28] MEDS: FERROUS SULFATE 325 MG TABEC PO SCH (08:59)
[2017-04-28 09:00] VITALS: BP 157/80
[2017-04-28] MEDS: FAMOTIDINE 20 MG TABLET PO SCH (09:00)
[2017-04-28] MEDS: CHOLECALCIFEROL 1,000 UNIT TABLET PO SCH (09:00)
[2017-04-28] MEDS: METOPROLOL TARTRATE 25 MG TABLET PO SCH (09:00)
--- NOTE | 2017-04-28 09:00 | NUR ---
For possible discharge today. Surgical dressing changed.
--- NOTE | 2017-04-28 13:40 | NUR ---
[place] removed. No S/S of infection. Wound healing well. No drainage on wound noted. Discharged to home with home health. In stable condition. Not in apparent distress. Instructed to take medications as prescribed. Instructed to use FWW for ambulation. Instructed to follow-up with PCP and Dr. Amador.
== END 2017-04-28 14:00 | disposition home health service (06) | DRG 559 ==
PROVIDERS: ADMIT Physical Medicine & Rehabilitation Pain Medicine; ATTEND Physical Medicine & Rehabilitation Pain Medicine
DX: S72.142D Displaced intertrochanteric fracture of left femur, subsequent encounter for closed fracture with routine healing (principal); I50.33 Acute on chronic diastolic (congestive) heart failure; D68.59 Other primary thrombophilia; I27.20 Pulmonary hypertension, unspecified; E22.2 Syndrome of inappropriate secretion of antidiuretic hormone; I08.2 Rheumatic disorders of both aortic and tricuspid valves; R13.10 Dysphagia, unspecified; N39.0 Urinary tract infection, site not specified; I11.0 Hypertensive heart disease with heart failure; W18.30XD Fall on same level, unspecified, subsequent encounter; E78.5 Hyperlipidemia, unspecified; I10 Essential (primary) hypertension; I51.7 Cardiomegaly; K11.7 Disturbances of salivary secretion; R26.9 Unspecified abnormalities of gait and mobility; E03.9 Hypothyroidism, unspecified; I70.0 Atherosclerosis of aorta; Z79.899 Other long term (current) drug therapy; Z88.6 Allergy status to analgesic agent; Z88.0 Allergy status to penicillin
CPT/HCPCS: 36415; 71010; 83735; 84100; 84300; 84443; 84480; 84550; 85025; 87077; 87086; 92526; 92610; 93307; 97110; 97112; 97116; 97165; 97530; 97535; A9155; J1650; J7030; Q0162